=== PATIENT | female | born 1945 | race Caucasian/White ===

== ENCOUNTER 2017-03-06 15:41 | Emergency (ER) | payer MEDICARE, OTHER | END 2017-03-06 17:56 | disposition home or self-care (01) | LOC: ER 15:41 | DX: R11.2 Nausea with vomiting, unspecified (principal); R19.7 Diarrhea, unspecified; R10.9 Unspecified abdominal pain; D64.9 Anemia, unspecified; B37.3 Candidiasis of vulva and vagina; Z79.899 Other long term (current) drug therapy; Z88.0 Allergy status to penicillin; Z88.2 Allergy status to sulfonamides; Z88.1 Allergy status to other antibiotic agents ==

== ENCOUNTER 2017-08-04 00:42 | Observation (INO) | payer MEDICARE, OTHER ==
[~2017-08-04] VITALS: Ht 162.6 cm; Wt 71.0 kg
[2017-08-04 01:29] LABS: ARTERIAL BLD GAS O2 SATURATION 96.8 % (94-98); ARTERIAL BLOOD GAS BASE EXCESS 6.3 mmol/L (-2.0-3.0); ARTERIAL BLOOD GAS PCO2 56.4 mmHg (32-45); ARTERIAL BLOOD GAS pH 7.37 (7.35-7.45)
[2017-08-04 01:30] LABS: BASO % 0.2 % (0.1-1.2); EOS # 0.5 10_X3_uL (0.0-0.4); GRAN # 5.6 10_X3_uL (1.6-6.1); GRAN % 62.1 % (34.0-71.1); HEMATOCRIT 28.1 % (34-45); LYMPH # 2.1 10_X3_uL (1.2-3.7); LYMPH % 23.6 % (19.3-51.7); MEAN CORPUSCULAR HGB CONC 31.7 g/dL (32.0-36.0); MEAN CORPUSCULAR VOLUME 94.3 fL (79-95); MEAN PLATELET VOLUME 8.1 fl (7.5-11.5); MONO # 0.8 10_X3_uL (0.2-0.9); MONO % 9.1 % (4.7-12.5); PLATELET COUNT 273 x10_3/uL (182-369); RED BLOOD COUNT 2.98 x10_6/uL (3.9-5.2); RED CELL DISTRIBUTION WIDTH 12.9 % (11.7-14.4); WHITE BLOOD COUNT 9.1 x10_3/uL (4.0-10.0)
[2017-08-04 01:35] LABS: HEMOGLOBIN 8.9 g/dL (11.2-15.7); MEAN CORPUSCULAR HEMOGLOBIN 29.8 pg (27.0-33.0)
[2017-08-04 01:55] LABS: ALBUMIN 4.1 gm/dL (3.4-5.0); ALKALINE PHOSPHATASE 60 U/L (50-136); ALT/SGPT 19 U/L (3.5-33.9); AST/SGOT 24 U/L (7.04-26.96); BILIRUBIN,TOTAL < 0.15 mg/dL (0.0-1.0); BLOOD UREA NITROGEN 19 mg/dL (7-18); CALCIUM 9.6 mg/dL (8.7-10.7); CARBON DIOXIDE 32 mmol/L (21-32); CREATINE KINASE 206 U/L (21-215); CREATININE 0.7 mg/dL (0.6-1.3); GLUCOSE,RANDOM 112 mg/dL (70-99); POTASSIUM 4.9 mmol/L (3.5-5.1); SODIUM 133 mmol/L (136-145); TOTAL PROTEIN 6.7 gm/dL (6.4-8.2)
[2017-08-04 07:02] LABS: BASO % 0.2 % (0.1-1.2); EOS % 0.2 % (0.7-5.8); GRAN # 10.9 10_X3_uL (1.6-6.1); GRAN % 93.5 % (34.0-71.1); HEMATOCRIT 28.1 % (34-45); HEMOGLOBIN 8.9 g/dL (11.2-15.7); LYMPH # 0.5 10_X3_uL (1.2-3.7); LYMPH % 4.5 % (19.3-51.7); MEAN CORPUSCULAR HEMOGLOBIN 29.5 pg (27.0-33.0); MEAN CORPUSCULAR HGB CONC 31.7 g/dL (32.0-36.0); MEAN PLATELET VOLUME 8.4 fl (7.5-11.5); MONO # 0.2 10_X3_uL (0.2-0.9); MONO % 1.6 % (4.7-12.5); PLATELET COUNT 262 x10_3/uL (182-369); RED BLOOD COUNT 3.02 x10_6/uL (3.9-5.2); WHITE BLOOD COUNT 11.6 x10_3/uL (4.0-10.0)
[2017-08-05 07:12] LABS: HEMATOCRIT 26.3 % (34-45); HEMOGLOBIN 8.3 g/dL (11.2-15.7); MEAN CORPUSCULAR HEMOGLOBIN 29.1 pg (27.0-33.0); MEAN CORPUSCULAR HGB CONC 31.6 g/dL (32.0-36.0); MEAN CORPUSCULAR VOLUME 92.3 fL (79-95); MEAN PLATELET VOLUME 8.4 fl (7.5-11.5); RED BLOOD COUNT 2.85 x10_6/uL (3.9-5.2); RED CELL DISTRIBUTION WIDTH 12.8 % (11.7-14.4); WHITE BLOOD COUNT 10.3 x10_3/uL (4.0-10.0)
[2017-08-05 07:14] LABS: BLOOD UREA NITROGEN 18 mg/dL (7-18); CARBON DIOXIDE 32 mmol/L (21-32); CREATININE 0.7 mg/dL (0.6-1.3); GLUCOSE,RANDOM 94 mg/dL (70-99); POTASSIUM 4.1 mmol/L (3.5-5.1); SODIUM 130 mmol/L (136-145)
== END 2017-08-05 12:25 | disposition home or self-care (01) ==
LOC: ER 00:42 → MS 04:12 → UNDODEPER 08-05 04:30 → MS 08-05 12:25
PROVIDERS: Emergency Medicine; ADMIT Internal Medicine
DX: J44.1 Chronic obstructive pulmonary disease with (acute) exacerbation (principal); E87.1 Hypo-osmolality and hyponatremia; E11.9 Type 2 diabetes mellitus without complications; F41.9 Anxiety disorder, unspecified; J30.9 Allergic rhinitis, unspecified; D50.9 Iron deficiency anemia, unspecified; I25.10 Atherosclerotic heart disease of native coronary artery without angina pectoris; I73.9 Peripheral vascular disease, unspecified; M81.0 Age-related osteoporosis without current pathological fracture; I10 Essential (primary) hypertension; M19.90 Unspecified osteoarthritis, unspecified site; E04.9 Nontoxic goiter, unspecified; E89.0 Postprocedural hypothyroidism; Z88.0 Allergy status to penicillin; Z88.1 Allergy status to other antibiotic agents; Z88.2 Allergy status to sulfonamides; Z99.81 Dependence on supplemental oxygen; Z87.891 Personal history of nicotine dependence; Z79.891 Long term (current) use of opiate analgesic; Z79.899 Other long term (current) drug therapy; Z79.82 Long term (current) use of aspirin; Z79.84 Long term (current) use of oral hypoglycemic drugs; Z82.3 Family history of stroke
CPT/HCPCS: 36415; 36600; 71010; 80048; 80053; 80061; 82550; 82553; 82803; 83036; 83605; 83880; 85025; 87040; 93005; 94640; 94664; 96365; 96375; 99070; 99284; 99285-25; G0378; J2930